=== PATIENT | male | born 1940 | race Caucasian/White ===

== ENCOUNTER → 2019-09-08 | Outpatient (CLI) | payer MEDICARE ==
[~2019-09-08] MED LIST: DENOSUMAB 60 MG/ML 1 ML SYRINGE SQ ONE
[2019-09-08 11:23] VITALS: BP 127/80; PULSE 71; RESP 16; TEMP 98
== END | disposition home or self-care (01) ==
LOC: PROCWHC3 11:04
PROVIDERS: ATTEND Nurse Practitioner Adult Health
DX: M81.0 Age-related osteoporosis without current pathological fracture (principal)
CPT/HCPCS: 96372

== ENCOUNTER → 2020-03-14 | Outpatient (CLI) | payer MEDICARE ==
[~2020-03-14] MED LIST changes: +DENOSUMAB 60 MG/ML 1 ML SYRINGE SQ NR; -DENOSUMAB 60 MG/ML 1 ML SYRINGE SQ ONE
[2020-03-14 09:02] VITALS: BP 122/74; PULSE 73; RESP 16; TEMP 97.6
== END | disposition home or self-care (01) ==
LOC: PROCWHC3 08:41
PROVIDERS: ATTEND Nurse Practitioner Adult Health
DX: M81.0 Age-related osteoporosis without current pathological fracture (principal)
CPT/HCPCS: 96372; J0897